=== PATIENT | female | born 1955 | race Caucasian/White ===

== ENCOUNTER 2017-02-08 18:15 | Emergency (ER) | payer OTHER ==
[~2017-02-08] VITALS: Ht 182.9 cm; Wt 106.8 kg
[~2017-02-08 18:15] MED LIST: ACET325C PO; ASPI325T32 PO; CALC500T9 PO; CHOL500050 PO; CITA20TA11 PO; LEVO25TA5 PO; LOVA40TA PO; MECL-114 PO; ONDA-53 PO; OXYC-474 PO; POLY17PO6 PO; TAMS0.4C98 PO
[2017-02-08 18:19] VITALS: BP 148/72; PULSE 115; RESP 18; O2SAT 95
[2017-02-08 18:43] VITALS: BP 135/80; PULSE 120
--- NOTE | 2017-02-08 18:47 | DRSVH ---
PROCEDURE: CT BRAIN WITHOUT CONTRAST ([id number]) INDICATIONS: 61 year-old female with meningioma, and left-sided facial numbness with confusion. TECHNIQUE: Noncontrast 4.5 mm thick angled axial sections acquired from the foramen magnum to the vertex, with c oronal reformats. COMPARISON: [facility], MR, MR BRAIN W&WO CON, 11/29/2016, 11:42. [facility] , CT, CT BRAIN WO CON, 10/23/2016, 15:57. Outside Film, CT, CT BRAIN WO CON, 02/21/2016, 6:28. Outsid e Film, CT, CT BRAIN WO CON, 02/21/2016, 1:23. FINDINGS: Image quality: Excellent. CSF spaces: Basal cisterns are patent. No extra-axial fluid collections. Ventricles are normal and unchanged in size and shape. Brain: No midline shift. 2.7 x 2.1 cm extra-axial mass in the left clival region is again noted, wit h significant extrinsic mass effect on the left ion. No new associated intracranial hemorrhage. Gra y-white matter interface is normal. Skull and face: Patient is status post left occipital craniectomy as before. Visualized facial bones appear intact. Sinuses: There is mild left maxillary sinus mucosal thickening. There is new near complete opacificat ion of the left sphenoid sinus. Right mastoid air cells appear clear. There is persistent moderate fl uid within the residual left mastoid air cells. IMPRESSION: 1. No significant interval change in size of left clival and cerebellopontine angle meningioma, with significant extrinsic mass effect on the left ion as before. 2. No acute intracranial hemorrhage or hydrocephalus identified. 3. New opacification of the left sphenoid sinus, suggesting sinusitis. Persistent asymmetric fluid wi thin the residual left mastoid air cells may reflect mastoiditis. Dictated by: Osmar Tee M.D. on 02/08/2017 at 18:37 Approved by: Osmar Tee M.D. on 02/08/2017 at 18:46
[2017-02-08 18:51] VITALS: BP 136/64; PULSE 121; RESP 18; O2SAT 95
--- NOTE | 2017-02-08 19:02 | ED.REPORT ---
HPI-Neurologic Deficit Date of Service Feb 08, 2017 ED Provider: Dr. Phillips Pt is a 61 year old female with a hx of benign head tumors and multiple strokes presenting to the ED via EMS complaining of blurred vision onset 2 days ago. Associated symptoms include increasing forehead pain radiating down her right neck, multiple vision, and having trouble finding the right words (chronic after her 2 strokes). Denies nausea, or any other symptoms at this time. Pt had radiation November-January 20 2017 and her symptoms began after. She currently lives at [facility]. Nursing Notes Stated Complaint: BLURRED VISION Chief Complaint: Neuro Symptoms/ Deficits Nursing Notes Reviewed: Yes Allergies: Coded Allergies: No Known Allergies (Unverified , 02/08/17) Scheduled Aspirin (Aspirin) 325 Mg Tablet 325 MG PO QAM Atorvastatin (Lipitor) 40 Mg Tablet 40 MG PO HS Cholecalciferol (Vitamin D3) (Vitamin D3) 1,000 Unit Tab.chew 2,000 UNIT PO QAM Citalopram (Citalopram) 10 Mg Tablet 30 MG PO QAM Dexamethasone (Dexamethasone) 0.5 Mg Tab 0.5 MG PO Q48H Levothyroxine (Levothyroxine) 25 Mcg Tablet 25 MCG PO QAM Omeprazole (Omeprazole) 20 Mg Capsule.dr 20 MG PO QAM Tamsulosin (Flomax) 0.4 Mg Capsule 0.4 MG PO QAM Scheduled PRN Acetaminophen (Acetaminophen) 325 Mg Capsule 650 MG PO q4hrs PRN PRN For Pain Calcium Carbonate (Tums) 500 Mg Tab.chew 500 MG PO q4hrs PRN PRN For Indigestion Magnesium Hydroxide (Milk of Magnesia) 400 Mg/5 Ml Oral.susp 30 ML PO Q72H PRN PRN For Constipation NO BOWEL MOVEMENT IN 3 DAYS Meclizine (Bonine) 25 Mg Tab.chew 25 MG PO TID PRN PRN VERTIGO Polyethylene Glycol 3350 (Miralax) 17 Gm Powd.pack 17 GM PO DAILY PRN PRN For Constipation General Time Seen by Provider: 19:04 Chief Complaint Other (Blurred vision) Hx Obtained From: Patient Arrived By: Ambulance Sudden in Onset?: No Onset Occurred: 2 days ago Symptom Duration: Since onset Progression Since Onset: Constant Location: : Head Quality: Painful Severity: Current: Moderate Severity: Maximum: Severe Associated with: Reports: Headache, Visual disturbance, Denies: Nausea, Vomiting Recent Healthcare: No recent hospitalization, Recent doctor visit Similar Sx Previous: No Past Medical History Past Medical History Notes: GONZALO Benjamin, Past Medical History Hx of subacute infarct in left ion, intraparenchymal hematoma in the left temporal lobe Hx of brain tumor Hx of left kidney tumor High cholesterol GERD 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 Physical Exam Initial Vital Signs Vital Signs (First) Date Time Temp Pulse Resp B/P Pulse Ox O2 Delivery O2 Flow Rate FiO2 02/08/17 18:19 36.9 115 18 148/72 95 Room Air Initial VS: Reviewed Abdomen / GI: Soft, Non-tender, No guarding, No rebound, No distention Extremities: Vascular intact, Neuro intact, No swelling, No tenderness Skin: Warm, Dry, No cyanosis Psychiatric: Mood/affect normal, Behavior normal, Normal thought content General/Constitutional: Awake, Alert, No acute distress, Well appearing Head / Eyes: Atraumatic Disconjugate gaze. Subtle right sided facial droop. Respiratory / Chest: Atraumatic, Breath sounds NL, Breath sounds = bilat, No respiratory distress Cardiovascular: Heart rate NL, Regular rhythm, Heart sounds NL, No gallop, No murmurs, No rubs, Peripheral circulation NL Neurologic: Oriented X3, Speech NL, No motor deficits, No sensory deficits, CN II - XII intact, Reflexes equal bilat, Cerebellar NL Neck: Atraumatic, Supple, No JVD, No carotid bruit Interpretation & Diagnostics Lab Results Interpretation Result Diagram: 02/08/17199902/08/171999 Test 02/08/17 20:00 White Blood Count 3.0th/mm3 (3.8-10.1) Red Blood Count 4.24mil/mm3 (3.90-5.20) Hemoglobin 12.3g/dL (12.0-15.6) Hematocrit 39.3% (35.0-46.0) Mean Corpuscular Volume 92.7fL (81-100) Mean Corpuscular Hemoglobin 29.0pg (27.0-35.0) Mean Corpuscular Hemoglobin Concent 31.3% (32.0-37.0) Red Cell Distribution Width 15.2% (12.3-15.4) Platelet Count 244bil/L (150-400) Neutrophils (%) (Auto) 61.5% (40-74) Lymphocytes (%) (Auto) 24.1% (14-46) Monocytes (%) (Auto) 9.6% (4-12) Eosinophils (%) (Auto) 2.4% (0-5) Basophils (%) (Auto) 0.2% (0-3) Sodium Level 140mEq/L (134-144) Potassium Level 3.9mEq/L (3.5-5.2) Chloride Level 103mEq/L (97-108) Carbon Dioxide Level 26mmol/L (18-29) Blood Urea Nitrogen 12mg/dL (8-27) Creatinine 0.58mg/dL (0.57-1.00) Estimat Glomerular Filtration Rate 151mL/min (>59) Glucose Level 116mg/dL (60-99) Calcium Level 8.8mg/dL (8.5-10.1) Total Bilirubin 0.3mg/dL (0.0-1.2) Aspartate Amino Transf (AST/SGOT) 10U/L (0-50) Alanine Aminotransferase (ALT/SGPT) 18U/L (0-32) Alkaline Phosphatase 96U/L (25-165) Total Protein 5.8g/dL (6.4-8.4) Albumin 3.0g/dL (3.4-5.0) Hold Wesley Top Tube Received (Received) CT Head Interpretation IMPRESSION: 1. No significant interval change in size of left clival and cerebellopontine angle meningioma, with significant extrinsic mass effect on the left ion as before. 2. No acute intracranial hemorrhage or hydrocephalus identified. 3. New opacification of the left sphenoid sinus, suggesting sinusitis. Persistent asymmetric fluid within the residual left mastoid air cells may reflect mastoiditis. Dictated by: Osmar Tee M.D. on 02/08/2017 at 18:37 Study: Head CT no contrast Interpretation / Wet Read by: Interpret - Radiologist Re-Eval/Medical Decision Med Decision/Clinical Course 61-year-old female with a history of tumor in the cerebellar pontine angle. He recently received radiation and had improvement with symptoms of diplopia and blurring however they are now recurring. I note that she is being tapered down off of dexamethasone and is on 0.5 mg every other day at present. Imaging today does not suggest any acute bleeding, tumor appears to be stable on CT. She is mildly tachycardic but without evidence of acute infection. No respiratory complaints , I do not feel she needs further evaluation for pulmonary embolism. We will increase her dexamethasone 8 mg twice a day and she is to follow-up with radiation oncology in a few days. Re-Evaluation/Progress : Time of Eval: 21:10 Patient Status: Condition improved Re-Evaluation/Progress Note: Discussed plan for discharge. Pt understands and agrees with plan. All pt questions addressed. Consultation : Referral / Consult Name: Fox aHhn MD Call Returned at: 20:44 [employer]: Agrees with plan Note: [facility]. Counseled Regarding: Diagnosis, Lab results, Need for follow-up, When/why to return to ED Discharge & Departure Impression: Primary Impression: Neoplasm of brain causing mass effect on adjacent structures Additional Impression: Diplopia Disposition: ADMITTED TO HOSPITAL Discharge Condition All VS Reviewed: Yes Condition: Improved Additional Instructions: Brain imaging today did not demonstrate any acute bleeding or change in known left pontine tumor. We will increase dexamethasone to 8 mg twice daily. Follow -up with Dr. Hahn, radiation oncology early next week. They will call to schedule. Will also need MRI brain next week, hopefully prior to rad-onc follow up. Continue other previous medications. Return to ED for new motor deficits, severe headache, change in mental status. Referrals: Fox Hahn MD Scribe Attestation Portions of this note were transcribed by Tamika Cline. I, Dr. Phillips personally performed the history, physical exam and medical decision-making; I reviewed and confirmed the accuracy of the information in the transcribed note. Signed by : Cielo Allison, 02/08/2017 at [id number]. copies to: Fox Hahn MD, Donald L MD Feb 08, 2017 19:01 TAMIKA CLINE Feb 08, 2017 19:04
[2017-02-08 20:15] LABS: BASOPHILS % (AUTO) 0.2 % (0-3); EOSINOPHILS % (AUTO) 2.4 % (0-5); MONOCYTES % (AUTO) 9.6 % (4-12); Mean Corpuscular Volume 92.7 fL (81-100); NEUTROPHILS % (AUTO) 61.5 % (40-74); Platelet Count 244 bil/L (150-400)
[2017-02-08] MEDS ORDERED: DEX5 PO (20:25)
[2017-02-08] MEDS ORDERED: CITA10TA9 PO (20:25)
[2017-02-08] MEDS ORDERED: OMEP20CA11 PO (20:26)
[2017-02-08] MEDS ORDERED: TAMS0.4C98 PO (20:26)
[2017-02-08] MEDS ORDERED: LIP40 PO (20:29)
[2017-02-08] MEDS ORDERED: MAGN400O4 PO (20:31)
[2017-02-08 20:33] VITALS: BP 140/59; PULSE 118; RESP 20; O2SAT 96
[2017-02-08] MEDS ORDERED: CHOL10008 PO (20:36)
[2017-02-08] MEDS ORDERED: MECL-114 PO (20:37)
[2017-02-08 22:55] VITALS: BP 127/76; PULSE 120; RESP 20; O2SAT 93
== END 2017-02-08 22:56 ==
LOC: SED 18:15
DX: H53.2 Diplopia (principal); C71.9 Malignant neoplasm of brain, unspecified; Z86.73 Personal history of transient ischemic attack (TIA), and cerebral infarction without residual deficits; K21.9 Gastro-esophageal reflux disease without esophagitis; Z79.82 Long term (current) use of aspirin; Z79.899 Other long term (current) drug therapy